=== PATIENT | male | born 1990 | race Caucasian/White ===

== ENCOUNTER 2018-07-28 21:13 | Emergency (ER) | payer MEDICARE, MEDICAID ==
[~2018-07-28] VITALS: Ht 157.5 cm; Wt 78.9 kg
[~2018-07-28 21:13] MED LIST: BENZ1TAB7; DOCU-144; FENO145T25; FLUO20CA38; LITH300C; RISP2TAB93
[2018-07-28 21:32] VITALS: Ht 157.5 cm; Wt 78.9 kg
[2018-07-28] MEDS ORDERED: LIDOCAINE/MYLANTA 40 ML BTL PO ONE (23:00)
[2018-07-28] MEDS ORDERED: FAMOTIDINE 20 MG TAB PO ONE (23:00)
[2018-07-28] MEDS ORDERED: OMEP20CA16 PO (23:18)
--- NOTE | 2018-07-28 23:21 | ERD ---
ER Documentation Chief Complaint Chief Complaint L CP started last night; hx of acid reflux HPI 28-year-old male presents for left sided chest pain x1 day. Has history of GERD. The chest pain is noted to be 4 out of 5, intermittent, lasting for about an hour at a time. States he had a spicy sandwich last night and noted that developed the pain. This was take omeprazole at home for the GERD but he has not taken it. He denies any pain radiation. Denies nausea or vomiting. Denies fevers denies shortness of breath. Denies any shortness of breath with activity. No other modifying factors noted, no treatments tried at home. ROS All systems reviewed and are negative except as per history of present illness. Medications Home Meds Active Scripts Omeprazole* (Omeprazole*) 20 Mg Capsule.dr, 20 MG PO DAILY for gerd, #30 CAP Prov:SONI MORROW DO 07/28/18 Reported Medications Benztropine Mesylate* (Cogentin*) 1 Mg Tab 03/10/10 Docusate Sodium* (Colace*) 100 Mg Capsule 03/10/10 Fluoxetine Hcl* (Prozac*) 20 Mg Capsule 03/10/10 Fenofibrate Nanocrystallized* (Tricor*) 145 Mg Tablet 03/10/10 Risperidone* (Risperdal*) 2 Mg Tablet 03/10/10 Newman Carbonate* (Eskalith*) 300 Mg Capsule 03/10/10 Allergies Allergies: Coded Allergies: No Known Allergies (Verified Allergy, Mild, 03/10/10) PMhx/Soc History of Surgery: Yes (ABDOMINAL SURGERY ) Anesthesia Reaction: No Hx Neurological Disorder: No Hx Respiratory Disorders: No Hx Cardiac Disorders: Yes (HIGH CHOLESTEROL) Hx Psychiatric Problems: Yes (PHSYCOSIS. ADHD. ) Hx Miscellaneous Medical Probl: Yes (ANXIETY ) Hx Alcohol Use: No Hx Substance Use: No Hx Tobacco Use: No Smoking Status: Never smoker FmHx Family History: No coronary disease Physical Exam Vitals Vital Signs Date Temp Pulse Resp B/P (MAP) Pulse Ox O2 O2 Flow FiO2 Time Delivery Rate 07/28/18 98.6 90 20 171/87 100 21:32 (115) Physical Exam Const: No acute distress Resp: Clear to auscultation bilaterally Cardio: Regular rate and rhythm, no murmurs, no tenderness to palpation of the chest wall Abd: Soft, non tender, non distended. Normal bowel sounds Skin: No petechiae or rashes Back: No midline or flank tenderness Ext: No cyanosis, or edema Neur: Awake and alert Psych: Normal Mood and Affect Results 24 hrs Current Medications Medications Dose Sig/Cayetano Start Time Status Last (Trade) Ordered Route PRN Stop Time Admin Dose Reason Admin 40 ml ONCE ONCE 07/28/18 DC 07/28/18 Miscellaneous PO 23:00 22:45 Medication 07/28/18 23:01 (Gi Cocktail (2)) Famotidine 20 mg ONCE ONCE 07/28/18 DC 07/28/18 (Pepcid) PO 23:00 22:45 07/28/18 23:01 Procedures/MDM Medical Decision Making: Differential diagnosis includes but not limited to GERD, ACS, PE, pneumonia Patient appeared well on physical exam. ED course: EKG: Rate/Rhythm: Normal Sinus Rhythm QRS, ST, T-waves: No changes consistent w/ acute ischemia Impression: No evidence of ischemia or arrhythmia Patient given a GI cocktail and Pepcid in the ER with relief of symptoms. Given young age, lack of risk factors, normal EKG, there is low suspicion for ACS at this point. There is possible the patient has pain secondary to GERD. Prescription(s): Patient given prescription for supportive medication(s). Patient advised to follow up with PCP in 1-2 days. Patient advised to return to ED for new or worsening symptoms. Patient stable on discharge from the ED. Disclaimer: Inadvertent spelling and grammatical errors are likely due to EHR/dictation software use and do not reflect on the overall quality of patient care. Also, please note that the electronic time recorded on this note does not necessarily reflect the actual time of the patient encounter. Departure Diagnosis: Primary Impression: Chest pain Chest pain type: unspecified Qualified Codes: R07.9 - Chest pain, unspecified Condition: Fair Patient Instructions: Chest Pain, Uncertain Cause Referrals: COMM[facility]IN[facility] YOU HAVE RECEIVED A MEDICAL SCREENING EXAM AND THE RESULTS INDICATE THAT YOU DO NOT HAVE A CONDITION THAT REQUIRES URGENT TREATMENT IN THE EMERGENCY DEPARTMENT. FURTHER EVALUATION AND TREATMENT OF YOUR CONDITION CAN WAIT UNTIL YOU ARE SEEN IN YOUR DOCTORS OFFICE WITHIN THE NEXT 1-2 DAYS. IT IS YOUR RESPONSIBILITY TO M YESSI AN APPOINTMENT FOR FOLOW-UP CARE. IF YOU HAVE A PRIMARY DOCTOR --you should call your primary doctor and schedule an appointment IF YOU DO NOT HAVE A PRIMARY DOCTOR YOU CAN CALL OUR PHYSICIAN REFERRAL HOTLINE AT IF YOU CAN NOT AFFORD TO SEE A PHYSICIAN YOU CAN CHOSE FROM THE FOLLOWING [facility] [address] [facility] [address] [facility] [address] [facility] [address] [facility] [address] [facility]. [facility] [address] Additional Instructions: Call your primary care doctor TOMORROW for an appointment during the next 1-2 days.See the doctor sooner or return here if your condition worsens before your appointment time. SONI MORROW DO July 28, 2018 23:21
[2018-07-29 00:09] VITALS: BP 138/78; PULSE 87; RESP 16
== END 2018-07-29 00:09 | disposition home or self-care (01) ==
LOC: FTE 21:13
DX: R07.9 Chest pain, unspecified (principal)